=== PATIENT | female | born 1980 | race African-American/Black ===

== ENCOUNTER 2018-11-21 17:02 | Observation (INO) | payer OTHER ==
[2018-11-22] MEDS: SOD CHLORIDE 0.9% 500 ML IV (02:11)
[2018-11-22 02:16] LABS: ADD MAN DIFF? NO
[2018-11-22 02:21] LABS: BASOPHILS % 0.3 % (0.0-2.0); EOSINOPHILS # 0.1 10^3/ul (0.0-0.5); EOSINOPHILS % 1.2 % (0.0-7.0); HEMATOCRIT 36.9 % (37.0-47.0); HEMOGLOBIN 12.2 g/dl (12.0-16.0); LYMPHOCYTES # 3.6 10^3/ul (0.8-2.9); LYMPHOCYTES % 47.5 % (15.0-51.0); MEAN CORPUSCULAR HEMOGLOBIN 31.5 pg (29.0-33.0); MEAN CORPUSCULAR HGB CONC 33.1 g/dl (32.0-37.0); MEAN CORPUSCULAR VOLUME 95.3 fl (82.0-101.0); MEAN PLATELET VOLUME 11.3 fl (7.4-10.4); MONOCYTE # 0.5 10^3/ul (0.3-0.9); MONOCYTES % 6.4 % (0.0-11.0); NEUTROPHIL # 3.4 10^3/ul (1.6-7.5); NEUTROPHILS % 44.5 % (39.0-77.0); PLATELET COUNT 256 10^3/UL (140-415); RED BLOOD COUNT 3.87 10^6/ul (4.20-5.40); RED CELL DISTRIBUTION WIDTH 12.6 % (11.5-14.5)
[2018-11-22 02:21] LABS: WHITE BLOOD COUNT 7.6 10^3/ul (4.8-10.8)
[2018-11-22 02:36] LABS: ANION GAP 10 (5-13); BLOOD UREA NITROGEN 12 mg/dl (7-20); CALCIUM 9.9 mg/dl (8.4-10.2); CARBON DIOXIDE 31 mmol/L (21-31); CHLORIDE 99 mmol/L (97-110); CREATININE 0.69 mg/dl (0.44-1.00); Estimated GFR > 60 mL/min (>60); GLUCOSE 96 mg/dl (70-220); SODIUM 140 mmol/L (135-144)
[2018-11-22 02:48] LABS: TROPONIN-I < 0.012 ng/ml (0.000-0.120)
[2018-11-22 03:37] LABS: POTASSIUM 2.6 mmol/L (3.5-5.1)
[2018-11-22] MEDS: POTASSIUM CHLORIDE 100 ML IVPB ×3 (04:41→10:23)
[2018-11-22] MEDS ORDERED: NITROGLYCERIN (SL) 0.4 MG TAB SL (05:30)
[2018-11-22] MEDS ORDERED: ACETAMINOPHEN 325 MG TAB PO (05:30)
[2018-11-22] MEDS ORDERED: NACL 0.9% 3 ML SYG IV (05:30)
[2018-11-22] MEDS ORDERED: BISACODYL (EC) 5 MG TAB PO (05:30)
[2018-11-22] MEDS ORDERED: ONDANSETRON 4 MG TAB PO (05:30)
[2018-11-22] MEDS ORDERED: DOCUSATE SODIUM 100 MG CAP PO (05:30)
[2018-11-22] MEDS: POTASSIUM CHLORIDE (SR) 20 MEQ TAB PO (06:26)
[2018-11-22 08:04] LABS: HEMOGLOBIN A1C 4.9 % (0-5.9)
[2018-11-22 08:10] LABS: CHOL/HDL RATIO 2.2 RATIO; CREATINE KINASE 66 IU/L (23-200); HDL CHOLESTEROL 72 mg/dl (34-82); LDL CHOLESTEROL,CALCULATED 82 mg/dl; TRIGLYCERIDES 50 mg/dl (0-149)
[2018-11-22 08:10] LABS: CHOLESTEROL 164 mg/dl (100-200)
[2018-11-22 08:22] LABS: CK INDEX 0.3; CK-MB < 0.22 ng/ml (0.0-2.4); TROPONIN-I < 0.012 ng/ml (0.000-0.120)
[2018-11-22] MEDS ORDERED: IBUPROFEN 200 MG TAB PO (12:30)
[2018-11-22] MEDS: MAGNESIUM SULFATE 1 GM/D5W 100 ML IVPB (13:09)
[2018-11-22] MEDS: MECLIZINE 25 MG TAB PO ×2 (13:12→20:07)
[2018-11-22 14:42] LABS: CREATINE KINASE 67 IU/L (23-200)
[2018-11-22 14:44] LABS: ANION GAP 6 (5-13); BLOOD UREA NITROGEN 10 mg/dl (7-20); CALCIUM 9.2 mg/dl (8.4-10.2); CARBON DIOXIDE 28 mmol/L (21-31); CHLORIDE 103 mmol/L (97-110); CREATININE 0.67 mg/dl (0.44-1.00); Estimated GFR > 60 mL/min (>60); GLUCOSE 121 mg/dl (70-220); POTASSIUM 3.8 mmol/L (3.5-5.1); SODIUM 137 mmol/L (135-144)
[2018-11-22 14:56] LABS: CK INDEX 0.3; CK-MB < 0.22 ng/ml (0.0-2.4); TROPONIN-I < 0.012 ng/ml (0.000-0.120)
[2018-11-22 19:21] LABS: ADD UMIC NO; UR ASCORBIC ACID NEGATIVE (NEGATIVE); UR BILIRUBIN (Dip) NEGATIVE (NEGATIVE); UR BLOOD (Dip) NEGATIVE (NEGATIVE); UR CLARITY SLIGHTLY CLOUDY (CLEAR); UR COLOR YELLOW (YELLOW); UR GLUCOSE (Dip) NEGATIVE (NEGATIVE); UR KETONES (Dip) TRACE mg/dL (NEGATIVE); UR LEUKOCYTE ESTERASE (Dip) NEGATIVE Leu/ul (NEGATIVE); UR MUCUS FEW /HPF (NONE SEEN); UR NITRITE (Dip) NEGATIVE (NEGATIVE); UR RBC 0 /HPF (0-5); UR SPECIFIC GRAVITY (Dip) 1.021 (1.003-1.030); UR SQUAMOUS EPITHELIAL CELL FEW /HPF (FEW); UR TOTAL PROTEIN (Dip) NEGATIVE (NEGATIVE); UR UROBILINOGEN (Dip) 1+ mg/dL (NEGATIVE); UR WBC 2 /HPF (0-5)
[2018-11-22 19:32] LABS: AMPHETAMINE/METHAMPHETAMINE Negative (NEGATIVE); BARBITURATES Negative (NEGATIVE); BENZODIAZEPINES Negative (NEGATIVE); COCAINE Negative (NEGATIVE); OPIATES Negative (NEGATIVE)
[2018-11-22 19:51] LABS: CANNABINOIDS Positive (NEGATIVE)
[2018-11-23 07:29] LABS: ANION GAP 7 (5-13); BLOOD UREA NITROGEN 6 mg/dl (7-20); CARBON DIOXIDE 30 mmol/L (21-31); CHLORIDE 103 mmol/L (97-110); Estimated GFR > 60 mL/min (>60); GLUCOSE 96 mg/dl (70-220); POTASSIUM 3.8 mmol/L (3.5-5.1); SODIUM 140 mmol/L (135-144)
[2018-11-23] MEDS: MECLIZINE 25 MG TAB PO ×2 (08:48→13:35)
== END 2018-11-23 15:10 | disposition home or self-care (01) ==
LOC: E/R 17:02 → TEL 11-22 05:28
DX: R55 Syncope and collapse (principal); E87.6 Hypokalemia
CPT/HCPCS: 70450; 71045; 80048; 80061; 80307; 81001; 81003; 82550; 82553; 83036; 83735; 84443; 84484; 84703; 85025; 93005; 93306; 97161; 99285-25; G0378